=== PATIENT | male | born 1960 | race Caucasian/White ===

== ENCOUNTER 2020-02-13 08:24 | Outpatient (CLI) | payer OTHER, SELFPAY ==
--- NOTE | 2020-02-13 08:40 | CT_ITS ---
WS: [id number] CT ABDOMEN AND PELVIS WITH CONTRAST HISTORY: R INGUINAL CANAL MASS, RLQ DISTENTION TECHNIQUE: Imaging performed of the abdomen and pelvis with IV contrast. Single phase imaging of the abdomen. Coronal and sagittal reformats are submitted. All CT scans at [facility] use at least one of these dose optimization techniques: automated exposure control; mA and/or kV adjustment per patient size (includes targeted exams where dose is matched to clinical indication); or iterativ e reconstruction. IV CONTRAST: Omnipaque 300; 95 mL IV. Oral contrast: Yes. DLP: 1096.91 mGycm COMPARISON: None available. Lower thorax: Lung bases are clear. Heart is normal size. Small hiatal hernia. Liver/biliary system: Normal size with no intrahepatic dilatation. Gallbladder: Normal. No gallstones or wall thickening. No pericholecystic fluid. Pancreas: Normal. Spleen: Normal. Adrenal glands: Normal. Right kidney: Normal. Left kidney: Small cortical cyst measures 6 mm in the upper pole and also at the lower pole. No obstr uction. Aorta: Mild atherosclerosis with no aneurysm. Lymphadenopathy: None. Free fluid: None. GI tract: Normal appendix. There is mild diffuse colonic wall thickening. The most significant mucosa l thickening is in the descending and sigmoid colon. There are a few scattered diverticula. No free f luid. Abdominal wall: Unremarkable abdominal wall. No hernia. Pelvis: Mildly enlarged prostate gland encroaching into the urinary bladder. Prostate measures 5.6 x 4.3 x 4.4 cm. There is very mild diffuse bladder wall thickening. No free fluid. There is an 11 mm ly mph node at the RIGHT groin. Bones: Unremarkable. CT/CT abdomen pelvis w con* [id number] IMPRESSION: 1. Mild diffuse colitis. Most significant wall thickening involves the descend ing and sigmoid colon. 2. No ascites or free fluid. 3. Normal appendix. 4. Moderate atherosclerosis aorta with no aneurysm. 5. Small hiatal hernia. 6. Mild prostate gland enlargement.
[2020-02-13] MEDS: iohexol 300 mg/mL 50 mL Btl PO (09:47)
[2020-02-13] MEDS: iohexol 300 mg/mL 100 mL Btl IV (10:07)
== END 2020-02-13 08:25 | disposition home or self-care (01) ==
LOC: RADWPI 08:31
PROVIDERS: Family Provider Internal Medicine; PCP Internal Medicine; Visit Provider Surgery
DX: R19.09 Other intra-abdominal and pelvic swelling, mass and lump (principal); K52.89 Other specified noninfective gastroenteritis and colitis; I70.0 Atherosclerosis of aorta; K44.9 Diaphragmatic hernia without obstruction or gangrene; N40.0 Benign prostatic hyperplasia without lower urinary tract symptoms
CPT/HCPCS: 74177; Q9967

== ENCOUNTER 2020-04-20 07:19 | Emergency (ER) | payer OTHER, SELFPAY ==
[2020-04-20 07:33] VITALS: BP 114/91; PULSE 109; RESP 16; TEMP 36.6; O2SAT 98; BMI 21.8
--- NOTE | 2020-04-20 07:54 | CT_ITS ---
WS: [id number] CT ABDOMEN PELVIS TECHNIQUE: Contrast-enhanced CT of the abdomen and pelvis with coronal and sagittal reformatted image s. CLINICAL INFORMATION: abd pain COMPARISON: February 13, 2020 DLP: 380.[address] scans at [facility] use at least one of these dose optimization techniques: automat ed exposure control; mA and/or kV adjustment per patient size (includes targeted exams where dose is matched to clinical indication); or iterative reconstruction. FINDINGS: Mild diffuse fatty infiltration the liver. Normal portal vein and splenic vein. Lung bases are well a erated. Normal gallbladder. Fatty atrophy of the pancreas. Normal spleen. Small esophageal hiatal her juma. Normal caliber abdominal aorta. Moderate atheromatous disease abdominal aorta with aortic calcif ication. Adrenal glands are normal. Normal renal parenchymal enhancement. Small left renal cyst. Prev iously described colitis involving the left descending colon and sigmoid colon appears improved rehana red to previous with mild residual thickening. Remaining colon is normal. Normal appendix in the right lower quadrant. No free fluid in the pelvis. Prostate enlargement measu ring 4.9 CM. No periaortic or retroperitoneal lymphadenopathy. No inguinal lymphadenopathy. No pelvic lymphadenopathy. Normal lumbar spine. CT/CT abdomen pelvis w con* [id number] IMPRESSION: 1. Normal appendix in the right lower quadrant. 2. Improved colitis involving the left descending colon and sigmoid colon prev iously described February 13, 2020 3. Mild diffuse fatty infiltration liver. 4. Prostate enlargement measuring 5.1 CM. 5. No new abdominal or pelvic findings.
--- NOTE | 2020-04-20 07:54 | XRR_ITS ---
PROCEDURE INFORMATION: Exam: XR Chest, 1 View Exam date and time: 04/20/2020 8:04 AM Age: 60 years old Clinical indication: Cough and dyspnea; Patient HX: Dyspnea, cough; Additional info: Dyspnea/cough TECHNIQUE: Imaging protocol: XR of the chest Views: 1 view. COMPARISON: CR XR chest 2V* [id number] 12/16/2019 1:41 PM FINDINGS: Lungs: Unremarkable. No consolidation. Pleural space: Unremarkable. No pleural effusion. No pneumothorax. Heart/Mediastinum: Unremarkable. No cardiomegaly. Bones/joints: Unremarkable. XR/XR chest 1V portable [id number] IMPRESSION: No acute findings.
--- NOTE | 2020-04-20 07:55 | ED_ITS ---
HPI - Abdominal Pain General: Chief Complaint: Abdominal Pain Stated Complaint: Pain in abdomen and back. Sent from Dr Max Time Seen by Provider: 04/20/20 07:40 History of Present Illness: HPI narrative: 60-year-old male comes in complaining of vague abdominal pain. Is been going on for about 2 to 3 months. Patient has seen Dr. Max for it several times. He states he initially had a lump in his groin the doctor told him was a lymph node but he has not had any further lymph nodes in the groin area the original wound has decreased in size. Nothing is really changed in particular it he just came to the emergency room to get a second opinion today. 2 months ago he had a CT of his abdomen and pelvis which showed some mild diffuse colitis. Patient tells me he was treated for this with antibiotics but he is not sure of the name of the biotics. He was treated for this early on in the course of things. He does say Dr. Max to talk to about referring him to gastroenterology. He denies any vomiting or diarrhea has had a little bit of intermittent nausea at times. No GI bleed symptoms hematochezia melena hematemesis chronic coffee-ground emesis denies dysuria urgency or frequency. He denies any chest pain or shortness of breath accompanying this. MD elicited complaint: abdominal pain Pertinent past history: other (Mild diffuse colitis on CT 2 months ago) Onset (ago): month(s) (3) Pain Consistency: intermittent Location: Epigastric Quality: cramping Radiation: bilateral flank and back Exacerbating factors: nothing Relieving factors: nothing Associated Symptoms: Reports GI cramping and vomiting; Denies anorexia, belching, bloating, change in bowel habits, change in stool character, chills, coffee ground emesis, constipation, diarrhea, dyspepsia, dysuria, excessive flatus, fever(s), heartburn, hematochezia, hematuria, hematemesis, fecal incontinence, loose stools, melena, nausea, poor appetite and syncope Review of Systems Const: Denies: fever(s) or chills ENMT: Denies: throat pain, ear or mastoid pain, nasal discharge or nasal congestion Card: Denies: syncope Resp: Denies: dyspnea, productive cough or non-productive cough GI: Reports: vomiting and GI cramping; Denies: nausea, hematemesis, coffee ground emesis, heartburn, diarrhea, constipation, bloating, belching, excessive flatus, fecal incontinence, change in bowel habits, change in stool character, hematochezia or melena : Denies: dysuria or hematuria PFSH ED PFSH: Medical History Hyperlipidemia Hypertension Physical Exam Const: COMMON NORMALS: no acute distress GENERAL APPEARANCE: cooperative and comfortable ORIENTATION/CONSCIOUSNESS: Yes awake, Yes oriented to person, Yes oriented to place and Yes oriented to time HENMT: COMMON NORMALS: normocephalic, atraumatic and hearing grossly normal bilaterally HEAD & SCALP: normocephalic and atraumatic Neck/C-Spine: COMMON NORMALS: no JVD Resp: COMMON NORMALS: normal respiratory effort, No retractions, No use of accessory muscles and clear to auscultation bilaterally AUSCULTATION: clear to auscultation bilaterally Cardio: COMMON NORMALS: no JVD, regular rate, regular rhythm and No murmurs present (Cardio) RATE: regular rate RHYTHM: regular rhythm GI: COMMON NORMALS: Soft to palpation and No hepatosplenomegaly present AUSCULTATION: Yes normoactive bowel sounds PALPATION: Yes Soft to palpation, No Tenderness to palpation present (GI), No Guarding due to palpation present (GI) and Yes No hepatosplenomegaly present Extremity: COMMON NORMALS: normal to inspection, capillary refill normal, no clubbing, cyanosis or edema, no calf tenderness and no pedal edema Neuro: SENSORIUM/ORIENTATION: Yes oriented to person, Yes oriented to place and Yes oriented to time Skin: COMMON NORMALS: no rashes or lesions noted GENERAL SKIN EXAM: no rashes or lesions noted Course Vital Signs: Vital signs: Vital Signs Temperature 97.9 F 04/20/20 07:33 Pulse Rate 70 04/20/20 10:22 Respiratory Rate 16 04/20/20 10:22 Blood Pressure 122/78 04/20/20 10:22 Pulse Oximetry 97 04/20/20 10:22 MDM - Abdominal Pain MDM Narrative: Medical decision making narrative: CT is unremarkable. There were some colitis changes in the previous CT that are more resolved now. Did show a rather large prostate. We will start him on some tamsulosin although I do not think that is the source of his problems. He does not seem to have anything acute going on is simply more of ongoing chronic problems after the last several months encouraged him to continue to follow-up with Dr. Max I think going to see GI would be the next most logical step and he will probably need panendoscopy. If he has any worsening or change symptoms return at this point I would not recommend any antibiotics or any other interventions pending a change in symptoms or completion of the GI work-up. Lab Data: Labs: Lab Results 04/20/20 04/20/20 04/20/20 Range/Units 07:40 07:40 07:45 WBC 9.9 (4.0-10.0) 10^3/ uL RBC 5.77 H (4.1-5.3) 10^6/u L Hgb 17.6 H (11.7-16.6) g/dL Hct 52.0 (42.0-52.0) % MCV 90.1 (80-94) fL MCH 30.5 (28.0-34.0) pg MCHC 33.8 (30.0-36.0) g/dL RDW 12.3 (12.1-15.1) % Plt Count 301 (130-400) 10^3/c mm MPV 10.2 (7.4-10.4) fL Neut % (Auto) 62.7 % Lymph % (Auto) 28.1 % [place] % (Auto) 7.2 % Eos % (Auto) 1.2 % Baso % (Auto) 0.6 % Neut # (Auto) 6.22 (1.8-7.7) 10^3/u L Lymph # (Auto) 2.8 (0.8-4.8) 10^3/u L [place] # (Auto) 0.7 (0.2-0.9) 10^3/u L Eos # (Auto) 0.1 (0.0-0.8) 10^3/u L Baso # (Auto) 0.1 (0.0-0.1) 10^3/u L Nucleated RBC % (a uto) 0 % Nucleated RBCs # 0.0 /100WBC Sodium 135 L (136-145) mmol/L Potassium 4.2 (3.5-5.1) mmol/L Chloride 97 L (98-107) mmol/L Carbon Dioxide 25 (22-29) mmol/L Anion Gap 17.2 (5-19) BUN 17 (6-20) mg/dL Creatinine 1.0 (0.7-1.2) mg/dL GFR Calculation 76.5 L (90-130) mL/min Glucose 387 H (65-115) mg/dL Calculated Osmolal ity 298 H (285-295) mOsm/k g Calcium 9.7 (8.5-10.5) mg/dL Total Bilirubin 0.6 (0.15-1.2) mg/dL AST 12 (0-40) U/L ALT 19 (0-41) U/L Alkaline Phosphata se 95 (40-130) IU/L C-Reactive Protein 1.0 (0.0-4.9) mg/L Total Protein 7.5 (6.6-8.7) g/dL Albumin 4.4 (3.5-5.2) g/dL Globulin 3.1 (1.3-4.6) g/dL Urine Color Yellow (Yellow) Urine Appearance Clear (CLEAR) Urine pH 5 (5-7) Ur Specific Gravit y 1.020 (1.005-1.030) Urine Protein Neg (Negative) Urine Glucose (UA) 4+ H (Normal) Urine Ketones 1+ H (Negative) Urine Blood Neg (Negative) Urine Nitrate Negative (Negative) Urine Bilirubin Neg (Negative) Urine Urobilinogen Norm (Negative) mg/dL Ur Leukocyte Michelle ase Negative (Negative) Discharge Plan Discharge Patient Disposition: Home Clinical Impression: Abdominal pain, chronic, generalized, Hypertension, Benign prostatic hyperplasia Condition: Stable Prescriptions: New tamsulosin 0.4 mg capsule 0.4 mg PO DAILY Qty: 30 RF: 0 No Action atorvastatin 20 mg tablet 20 mg PO DAILY@0630 RF: 0 losartan 25 mg tablet 25 mg PO DAILY@0630 RF: 0 Lantus Solostar U-100 Insulin 100 unit/mL (3 mL) insulin pen 20 unit SUBCUT BEDTIME@1999 RF: 0 Discharge Orders: Discharge ED (Routine); Ordered 04/20/20 Ordered By: Darshan Tavares Referrals: Ming Max DO [Primary Care Provider] - Discharge Diet: Usual diet Discharge Activity: Increase activity as tolerated Patient Instructions: Abdominal Pain (ED) Activity Restrictions/Additional Instructions: Follow-up with GI as scheduled by Dr. Max. Return to the emergency room if symptoms worsen. Coding Level of Care Code ED Operator Vacuum for Prudence Fwd Exam Comprehensive
[2020-04-20 08:21] LABS: Add Urine Microscopic? NO
[2020-04-20] MEDS: iohexol 300 mg/mL 100 mL Btl IV (08:25)
[2020-04-20 08:26] LABS: Basophils # 0.1 10^3/uL (0.0-0.1); Basophils % 0.6 %; Eosinophils # 0.1 10^3/uL (0.0-0.8); Eosinophils % 1.2 %; Hemoglobin 17.6 g/dL (11.7-16.6); Lymphocytes # 2.8 10^3/uL (0.8-4.8); Lymphocytes % 28.1 %; Mean Corpuscular HGB Conc 33.8 g/dL (30.0-36.0); Mean Corpuscular Hemoglobin 30.5 pg (28.0-34.0); Mean Corpuscular Volume 90.1 fL (80-94); Mean Platelet Volume 10.2 fL (7.4-10.4); Monocytes # 0.7 10^3/uL (0.2-0.9); Monocytes % 7.2 %; Neutrophils # 6.22 10^3/uL (1.8-7.7); Neutrophils % 62.7 %; Nucleated Red Blood Cells % 0 %; Platelet Count 301 10^3/cmm (130-400); Red Blood Count 5.77 10^6/uL (4.1-5.3); Red Cell Distribution Width 12.3 % (12.1-15.1); White Blood Count 9.9 10^3/uL (4.0-10.0)
[2020-04-20 08:31] LABS: Alanine Aminotransferase 19 U/L (0-41); Albumin Level 4.4 g/dL (3.5-5.2); Alkaline Phosphatase 95 IU/L (40-130); Anion Gap 17.2 (5-19); Aspartate Amino Transferase 12 U/L (0-40); Blood Urea Nitrogen 17 mg/dL (6-20); Calcium 9.7 mg/dL (8.5-10.5); Carbon Dioxide 25 mmol/L (22-29); Chloride 97 mmol/L (98-107); Globulin 3.1 g/dL (1.3-4.6); Glomerular Filtration Rate 76.5 mL/min (90-130); Glucose 387 mg/dL (65-115); Osmolality Calculated 298 mOsm/kg (285-295); Potassium 4.2 mmol/L (3.5-5.1); Sodium 135 mmol/L (136-145); Total Bilirubin 0.6 mg/dL (0.15-1.2); Total Protein 7.5 g/dL (6.6-8.7)
[2020-04-20 09:03] VITALS: BP 119/76; BP 120/81; BP 96/75; PULSE 111; PULSE 94; PULSE 95
[2020-04-20 09:04] VITALS: PULSE 111
[2020-04-20 09:41] LABS: Protein Urine Neg (Negative); Urine Appearance Clear (CLEAR); Urine Color Yellow (Yellow); pH Urine 5 (5-7)
[2020-04-20 09:42] LABS: Bilirubin Urine Neg (Negative); Blood Urine Neg (Negative); Glucose Urine UA 4+ (Normal); Ketones Urine 1+ (Negative); Leukocyte Esterase Urine Negative (Negative); Nitrate Urine Negative (Negative); Urobilinogen Urine Norm (Negative)
[2020-04-20 10:22] VITALS: BP 122/78; PULSE 70; RESP 16; O2SAT 97
== END 2020-04-20 10:22 | disposition home or self-care (01) ==
PROVIDERS: Emergency Provider Family Medicine; PCP Internal Medicine
DX: G89.29 Other chronic pain (principal); R10.84 Generalized abdominal pain; I10 Essential (primary) hypertension; N40.0 Benign prostatic hyperplasia without lower urinary tract symptoms; Z79.4 Long term (current) use of insulin; E78.5 Hyperlipidemia, unspecified
CPT/HCPCS: 12345; 71045; 74177; 80053; 81003; 85025; 86140; 99283; Q9967

== ENCOUNTER 2024-09-06 10:42 | Inpatient (IN) | payer SELFPAY ==
[2024-09-06] VITALS (12 sets, daily range): BP systolic 67–159; BP diastolic 48–79; PULSE 85–111; RESP 16–25; TEMP 36.4; O2SAT 95–100; BMI 22.6; BMI 24.0
--- NOTE | 2024-09-06 10:47 | ED_ITS ---
HPI - General Adult General: Stated complaint: pain with urination Time Seen by Provider: 09/06/24 10:43 History of Present Illness: Associated symptoms: Deny chest pain, dyspnea or rash Related Data Home Medications ?Medication ?Instructions ?Recorded ?Confirmed atorvastatin 20 mg tablet 20 mg PO DAILY@0604/20/20 04/20/20 insulin glargine 100 unit/mL (3 20 unit SUBCUT BEDTIME @199904/20/20 04/20/20 mL) subcutaneous pen (Lantus Solostar U-100 Insulin) losartan 25 mg tablet 25 mg PO DAILY@62904/20/20 04/20/20 Previous Rx's ?Medication ?Instructions ?Recorded tamsulosin 0.4 mg capsule 0.4 mg PO DAILY #30 caps Allergies Allergy/AdvReac Type Severity Reaction Status Date / Time No Known Allergies Allergy Verified 04/20/20 07:38 Review of Systems Const: Denies: fever(s) or chills Card: Denies: chest pain Resp: Denies: dyspnea GI: Denies: abdominal pain : Reports: dysuria; Denies: urinary frequency or urinary urgency Musc: Denies: neck pain or back pain Skin/Breast: Denies: rash PFSH ED PFSH: Medical History Hyperlipidemia Hypertension Physical Exam Const: COMMON NORMALS: no acute distress GENERAL APPEARANCE: cooperative and comfortable ORIENTATION/CONSCIOUSNESS: Yes awake, Yes oriented to person, Yes oriented to place and Yes oriented to time HENMT: COMMON NORMALS: normocephalic, atraumatic and hearing grossly normal bilaterally HEAD & SCALP: normocephalic and atraumatic Resp: COMMON NORMALS: normal respiratory effort, No retractions, No use of accessory muscles and clear to auscultation bilaterally AUSCULTATION: clear to auscultation bilaterally Cardio: COMMON NORMALS: regular rate, regular rhythm and No murmurs present (Cardio) RATE: regular rate RHYTHM: regular rhythm GI: COMMON NORMALS: Soft to palpation and No hepatosplenomegaly present AUSCULTATION: Yes normoactive bowel sounds PALPATION: Yes Soft to palpation, No Tenderness to palpation present (GI), No Guarding due to palpation present (GI) and Yes No hepatosplenomegaly present Extremity: COMMON NORMALS: normal to inspection, capillary refill normal, no clubbing, cyanosis or edema, no calf tenderness and no pedal edema Neuro: SENSORIUM/ORIENTATION: Yes oriented to person, Yes oriented to place and Yes oriented to time Skin: COMMON NORMALS: no rashes or lesions noted GENERAL SKIN EXAM: no rashes or lesions noted Discharge Plan Discharge Condition: Stable Prescriptions: No Action atorvastatin 20 mg tablet 20 mg PO DAILY@0630 losartan 25 mg tablet 25 mg PO DAILY@0630 Lantus Solostar U-100 Insulin 100 unit/mL (3 mL) insulin pen 20 unit SUBCUT BEDTIME@1999 tamsulosin 0.4 mg capsule 0.4 mg PO DAILY Qty: 30 0RF Referrals: Ming Max DO [Primary Care Provider, Internal Medicine] Print Language: Bruneian Coding Level of Care Code ED System Engineer for Prudence Verduzco
--- NOTE | 2024-09-06 11:22 | W.ED.MALEGU ---
HPI - Male Genitourinary General: Chief complaint: Urogenital-Male Stated complaint: pain with urination Time Seen by Provider: 09/06/24 10:43 History of Present Illness: to the emergency department with a chief complaint of vomiting and severe pain for the past couple of days. The patient has a history of diabetes and a previous urinary tract infection (UTI) a couple of years ago. The patient reports feeling feverish, with chills and hot flashes, although they have not measured their temperature at home. They describe feeling weak and generally unwell. The patient denies any chest pain, shortness of breath, muscle pain, or joint pain. They mention having blood in their urine during their previous UTI episode, which was treated with antibiotics. The current symptoms are impacting the patient's overall well-being, causing them to feel poor in general. The patient's last UTI occurred a couple of years ago when they noticed blood in their urine while at work. They came to the hospital and were prescribed antibiotics for treatment. No specific information was provided about the resolution of that previous infection or any recurrences since then. Related Data Home Medications ?Medication ?Instructions ?Recorded ?Confirmed atorvastatin 20 mg tablet 20 mg PO DAILY@0630 04/20/20 09/06/24 insulin glargine 100 unit/mL (3 30 unit SUBCUT BEDTIME@199904/20/20 09/06/24 mL) subcutaneous pen (Lantus Solostar U-100 Insulin) losartan 25 mg tablet 25 mg PO DAILY@0630 04/20/20 09/06/24 metformin 500 mg tablet,extended 500 mg PO DAILY 09/06/24 09/06/24 release 24 hr Allergies Allergy/AdvReac Type Severity Reaction Status Date / Time No Known Allergies Allergy Verified 04/20/20 07:38 Review of Systems General: Reports: 10 or more systems reviewed and unremarkable except in HPI and below PFSH ED PFSH: Medical History Hyperlipidemia Hypertension Physical Exam Const: COMMON NORMALS: no acute distress, patient oriented x3, healthy appearing, alert and well nourished HENMT: COMMON NORMALS: normocephalic HEAD & SCALP: normocephalic Eye: COMMON NORMALS: EOMs intact bilaterally Neck/C-Spine: COMMON NORMALS: full ROM and supple Resp: COMMON NORMALS: normal respiratory effort, No retractions and clear to auscultation bilaterally AUSCULTATION: clear to auscultation bilaterally Cardio: COMMON NORMALS: regular rate, regular rhythm, No gallops present (Cardio) and No murmurs present (Cardio) RATE: regular rate RHYTHM: regular rhythm GI: COMMON NORMALS: Soft to palpation and non-tender PALPATION: Yes Soft to palpation OTHER: No CVA Tenderness Extremity: GENERAL: Yes normal exam except as noted Neuro: COMMON NORMALS: patient oriented x3 SENSORIUM/ORIENTATION: Yes alert Skin: COMMON NORMALS: no rashes or lesions noted GENERAL SKIN EXAM: no rashes or lesions noted Course Vital Signs: Vital signs: Vital Signs Temperature 97.6 F 09/06/24 10:51 Pulse Rate 90 09/06/24 12:00 Respiratory Rate 16 09/06/24 12:00 Blood Pressure 122/63 09/06/24 12:00 Pulse Oximetry 98 09/06/24 12:00 Oxygen Delivery Me thod Room Air 09/06/24 10:51 MDM - Male Medical Decision Making 64-year-old male presented to the emergency department for evaluation of dysuria. He was found to be hypotensive upon arrival in the emergency department. Repeat blood pressure still demonstrated hypotension. Patient did have a general sense of malaise. Laboratory evaluation is consistent with a urinary tract infection. Patient concerning for sepsis. Patient started on Levaquin, given fluid bolus, and blood cultures were ordered. Discussed with the patient my recommendation for admission and he was amiable to this plan. Dr. Crouch the hospitalist was contacted. Due to the elevated creatinine he was wanting to rule out obstruction with a CT abdomen pelvis. CT now pelvis did not show a ureteral obstruction. Patient was admitted to [facility] Lab Data 09/06/24 11:23 09/06/24 11:23 Radiology Impressions Abdomen/Pelvis CT 09/06/24 13:10 IMPRESSION: 1. New, mild bilateral perinephric stranding. No renal or ureteral obstruction. Slightly greater inflammation surrounding the LEFT kidney and ureter. Correlate for possible urinary tract infection. 2. Descending colon diverticulosis. No evidence for acute diverticulitis. 3. Negative appendix. 4. No obstruction of the GI tract. Laboratory Results WBC 18.73 10^3/uL (3.29-11.43) H 09/06/24 11:23 RBC 5.17 10^6/uL (3.85-5.65) 09/06/24 11:23 Hgb 15.40 g/dL (11.27-16.99) 09/06/24 11:23 Hct 46.0 % (37-53) 09/06/24 11:23 MCV 89.0 fl (82-101) 09/06/24 11:23 MCH 29.8 pg (27-33) 09/06/24 11:23 MCHC 33.5 g/dL (30-55) 09/06/24 11:23 RDW 12.3 % (12.1-15.1) 09/06/24 11:23 Plt Count 232 10^3/cmm (157-399) 09/06/24 11:23 MPV 10.3 fL (7.4-10.4) 09/06/24 11:23 Neut % (Auto) 86.1 % 09/06/24 11:23 Lymph % (Auto) 4.0 % 09/06/24 11:23 [place] % (Auto) 9.0 % 09/06/24 11:23 Eos % (Auto) 0.1 % 09/06/24 11:23 Baso % (Auto) 0.2 % 09/06/24 11:23 Neut # (Auto) 16.14 10^3/uL (1.8-7.7) H 09/06/24 11:23 Lymph # (Auto) 0.8 10^3/uL (0.8-4.8) 09/06/24 11:23 [place] # (Auto) 1.7 10^3/uL (0.2-0.9) H 09/06/24 11:23 Eos # (Auto) 0.0 10^3/uL (0.0-0.8) 09/06/24 11:23 Baso # (Auto) 0.0 10^3/uL (0.0-0.1) 09/06/24 11:23 Nucleated RBC % (auto) 0 % 09/06/24 11:23 Nucleated RBCs # 0.0 /100WBC 09/06/24 11:23 Sodium 134 mmol/L (136-145) L 09/06/24 11:23 Potassium 4.4 mmol/L (3.5-5.1) 09/06/24 11:23 Chloride 96 mmol/L (98-107) L 09/06/24 11:23 Carbon Dioxide 21 mmol/L (22-29) L 09/06/24 11:23 Anion Gap 21.4 (5-19) H 09/06/24 11:23 BUN 30 mg/dL (8-23) H 09/06/24 11:23 Creatinine 1.5 mg/dL (0.7-1.2) H 09/06/24 11:23 GFR Calculation 47.3 mL/min (90-130) L 09/06/24 11:23 Glucose 277 mg/dL (65-115) H 09/06/24 11:23 Calculated Osmolality 294 mOsm/kg (285-295) 09/06/24 11:23 Lactic Acid 1.9 mmol/L (0.5-2.2) 09/06/24 11:23 Calcium 9.3 mg/dL (8.5-10.5) 09/06/24 11:23 Total Bilirubin 0.9 mg/dL (0.15-1.2) 09/06/24 11:23 AST 17 U/L (0-40) 09/06/24 11:23 ALT 16 U/L (0-41) 09/06/24 11:23 Alkaline Phosphatase 97 U/L (40-130) 09/06/24 11:23 Total Protein 7.7 g/dL (6.6-8.7) 09/06/24 11:23 Albumin 3.9 g/dL (3.5-5.2) 09/06/24 11:23 Globulin 3.8 g/dL (1.3-4.6) 09/06/24 11:23 Urine Color Dark yellow (Yellow) A 09/06/24 11:47 Urine Appearance Cloudy (CLEAR) A 09/06/24 11:47 Urine pH 5.5 (5-7) 09/06/24 11:47 Ur Specific [place] 1.024 (1.005-1.030) 09/06/24 11:47 Urine Protein 2+ (Negative) A 09/06/24 11:47 Urine Glucose (UA) 3+ (Normal) H 09/06/24 11:47 Urine Ketones Trace (Negative) 09/06/24 11:47 Urine Blood 3+ (Negative) A 09/06/24 11:47 Urine Nitrate Positive (Negative) A 09/06/24 11:47 Urine Bilirubin Negative (Negative) 09/06/24 11:47 Urine Urobilinogen 1.0 mg/dL (Negative) 09/06/24 11:47 Ur Leukocyte Esterase 2+ (Negative) A 09/06/24 11:47 Urine RBC 0-2 /hpf (0-2) 09/06/24 11:47 Urine WBC >100 /hpf (0-5) H 09/06/24 11:47 Ur Squamous Epith Cells 0-5 /hpf (0-5) 09/06/24 11:47 Amorphous Sediment Not Reportable 09/06/24 11:47 Urine Bacteria 4+ /hpf (NONE) H 09/06/24 11:47 Hyaline Casts 7.85 /lpf 09/06/24 11:47 All radiology interpretation(s) finalized by discharge ED provider radiology interpretation(s): CT abdomen pelvis showed pyelonephritis without ureteral obstruction Discharge Plan Discharge Patient Disposition: Admitted As Inpatient Clinical Impression: Acute pyelonephritis due to bacteria Sepsis Qualifiers: Sepsis type: sepsis due to unspecified organism Sepsis acute organ dysfunction status: with acute organ dysfunction Severe sepsis acute organ dysfunction type: acute renal failure Acute renal failure type: unspecified Severe sepsis shock status: without septic shock Qualified Code(s): A41.9 - Sepsis, unspecified organism Urinary tract infection Qualifiers: Urinary tract infection type: acute cystitis Hematuria presence: without hematuria Qualified Code(s): N30.00 - Acute cystitis without hematuria Condition: Stable Coding Level of Care Code ED Cardiovascular Sonographer for Prudence Verduzco
[2024-09-06 11:30] LABS: Basophils % 0.2 %; Eosinophils % 0.1 %; Lymphocytes # 0.8 10^3/uL (0.8-4.8); Mean Corpuscular HGB Conc 33.5 g/dL (30-55); Mean Corpuscular Hemoglobin 29.8 pg (27-33); Mean Platelet Volume 10.3 fL (7.4-10.4); Monocytes # 1.7 10^3/uL (0.2-0.9); Neutrophils # 16.14 10^3/uL (1.8-7.7); Neutrophils % 86.1 %; Nucleated Red Blood Cells % 0 %; Platelet Count 232 10^3/cmm (157-399); Red Blood Count 5.17 10^6/uL (3.85-5.65); Red Cell Distribution Width 12.3 % (12.1-15.1); White Blood Count 18.73 10^3/uL (3.29-11.43)
[2024-09-06] MEDS: sodium chloride 0.9% 1,000 ML 999 ML IV (11:39)
[2024-09-06] MEDS: cefTRIAXone 1,000 mg SDV 1000 MG IM (11:41)
[2024-09-06 11:51] LABS: Alanine Aminotransferase 16 U/L (0-41); Albumin Level 3.9 g/dL (3.5-5.2); Alkaline Phosphatase 97 U/L (40-130); Anion Gap 21.4 (5-19); Aspartate Amino Transferase 17 U/L (0-40); Blood Urea Nitrogen 30 mg/dL (8-23); Calcium 9.3 mg/dL (8.5-10.5); Carbon Dioxide 21 mmol/L (22-29); Chloride 96 mmol/L (98-107); Creatinine Clr Calc Pharmacy 54.7983; Globulin 3.8 g/dL (1.3-4.6); Glomerular Filtration Rate 47.3 mL/min (90-130); Glucose 277 mg/dL (65-115); Osmolality Calculated 294 mOsm/kg (285-295); Potassium 4.4 mmol/L (3.5-5.1); Sodium 134 mmol/L (136-145); Total Bilirubin 0.9 mg/dL (0.15-1.2); Total Protein 7.7 g/dL (6.6-8.7)
[2024-09-06 11:55] LABS: Bilirubin Urine Negative (Negative); Blood Urine 3+ (Negative); Glucose Urine UA 3+ (Normal); Ketones Urine Trace (Negative); Leukocyte Esterase Urine 2+ (Negative); Nitrate Urine Positive (Negative); Protein Urine 2+ (Negative); Specific Gravity, Urine 1.024 (1.005-1.030); Urine Appearance Cloudy (CLEAR); Urine Color Dark Yellow (Yellow); pH Urine 5.5 (5-7)
[2024-09-06 11:56] LABS: Lactic Sepsis W/Reflex 1.9 mmol/L (0.5-2.2)
[2024-09-06 11:58] LABS: Add Urine Microscopic? YES; Bacteria Urine 4+ /hpf; Hyaline Casts Urine 7.85 /lpf; RBC Urine 0-2 /hpf (0-2); Squamous Epithelial Cell Urine 0-5 /hpf (0-5); WBC Urine >100 /hpf (0-5)
[2024-09-06 12:29] LABS: Add Urine Culture? Yes; UA Slide Review UA Slide Review Perf
--- NOTE | 2024-09-06 13:02 | ECG_ITS ---
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 Measurements Intervals [place] Rate: 82 P: 75 SD: 148 QRS: 32 QRSD: 80 T: 78 QT: 360 QTc: 422 Interpretive Statements SINUS RHYTHM No previous ECG available for comparison Electronically Signed On 09-07-2024 13:06:36 CDT by Dashawn Avery M.D. [email or web address]
[2024-09-06] MEDS: levofloxacin-dextrose 5 % 750 MG/150 ML PREMIX 100 MG IV (13:09)
--- NOTE | 2024-09-06 13:10 | CT_ITS ---
WS: [id number] CT ABDOMEN AND PELVIS NONCONTRAST HISTORY: UTI with elevated Cr r/o obstruction TECHNIQUE: Imaging performed through the abdomen and pelvis. Coronal and sagittal reformats are submitted. All CT scans at [facility] use at least one of these dose optimization techniques: automated exposure control; mA and/or kV adjustment per patient size (includes targeted exams where dose is matched to clinical indication); or iterative reconstruction. DLP: 520.17 mGy.cm COMPARISON: 04/20/2020 Lower thorax: 2 mm nodule LEFT lung base noted on the prior study from 2019. Heart size is normal. Small hiatal hernia. Liver: Normal size liver. No mass or bile duct dilatation. Gallbladder: Normal gallbladder. No pericholecystic fluid or cholelithiasis. No gallbladder wall thickening. Pancreas: Mild atrophy. Spleen: Normal. Adrenal glands: Normal. No mass. Right kidney: Mild perinephric stranding. No obstruction. Perinephric stranding is new since 04/20/2020. Mild edema in the pararenal fascia. Left kidney: Normal size kidney with perinephric soft tissue stranding which is new. Hyperdense mass in the lower pole cortex measures 6 mm and is stable. Mild LEFT periureteral stranding. Aorta: Mild atherosclerosis abdominal aorta with no aneurysm. No free fluid, intraperitoneal air or significant lymphadenopathy. GI tract: No obstruction. No appendicitis. Mild diverticular disease in the descending and sigmoid colon. Abdominal wall: Negative. No hernia. Pelvis: Prostate gland is enlarged. Mildly distended urinary bladder. Small lymph node or fluid in the RIGHT inguinal canal. Osseous structures: Unremarkable. CT/CT abdomen pelvis wo con [id number] IMPRESSION: 1. New, mild bilateral perinephric stranding. No renal or ureteral obstruction . Slightly greater inflammation surrounding the LEFT kidney and ureter. Correla te for possible urinary tract infection. 2. Descending colon diverticulosis. No evidence for acute diverticulitis. 3. Negative appendix. 4. No obstruction of the GI tract.
--- NOTE | 2024-09-06 15:22 | P.HP_ITS ---
Providers/Chief Complaint 2 Primary Care Provider: Ming Max DO Chief Complaint: pain with urination History of Present Illness Osei Mohr is a 64 year old male with past medical history of type 2 diabetes mellitus, hypertension presents to the ER difficulty and painful urination along with decreased urination for last 2 days. Patient denies any nausea vomiting, headache. Occasional back pain. Denies any trauma. Had a UTI once around 2 to 3 years ago. In the ER found to have systolic blood pressure 87 after which he was given septic bolus. Currently blood pressures are 120 systolics. Review of Systems 2 General: Reports: 10 or more systems reviewed and unremarkable except in HPI and below Const: Denies: fever(s), chills, body aches, change in appetite, change in weight, malaise, night sweats, diaphoresis, change in sleep pattern, daytime sleepiness or snoring Eyes: Denies: change in vision, blurry vision, photophobia, eye discomfort or eye discharge ENMT: Denies: throat pain, enlarged tonsils, hoarseness, mouth pain, oral sores, dry mouth, tinnitus, nasal congestion or post nasal drip Card: Denies: chest pain, palpitations, irregular heart rhythm, edema, swelling of feet/ankles, lightheadedness, syncope, pre-syncope, dyspnea on exertion, orthopnea, leg pain with exertion or acrocyanosis Resp: Denies: dyspnea, productive cough, non-productive cough, wheezing, stridor, pain on inspiration, change in phlegm color, hemoptysis or chest congestion GI: Denies: abdominal pain, nausea, vomiting, hematemesis, coffee ground emesis, dysphagia, heartburn, diarrhea, constipation, bloating, GI cramping, change in bowel habits, pain on defecation, hematochezia or melena : Denies: flank pain, difficulty urinating, dysuria, urinary frequency, urinary urgency, urinary hesitancy, urinary dribbling, difficulty starting urination, change in urine stream, nocturia or hematuria Musc: Denies: neck pain, back pain, extremity pain, joint pain, joint swelling, joint redness, joint stiffness or limited range of motion Neuro: Denies: headache(s), numbness in extremities, weakness in extremities, sensory changes, lack of coordination, difficulty walking, frequent falls, dizziness, vertigo, confusion, Slurred speech present, difficulty communicating thoughts or seizure-like activity Psych: Denies: anxiety, depression, mood swings, panic attacks, hopelessness or irritability Endo: Denies: polyuria, polydipsia, tired all the time, cold intolerance, excessive sweating, flushing or heat intolerance Dalton/Lymph: Denies: easy bruising or easy bleeding All/Imm: Denies: tongue swelling, facial swelling or acute wheezing Medications/Allergies Home Medications ?Medication ?Instructions ?Recorded ?Confirmed ?Last Taken ?Type atorvastatin 20 mg tablet 20 mg PO DAILY@62904/20/20 09/06/24 09/06/24 History insulin glargine 100 unit/mL (3 30 unit SUBCUT BEDTIME @199904/20/20 09/06/24 09/05/24 History mL) subcutaneous pen (Lantus Solostar U-100 Insulin) losartan 25 mg tablet 25 mg PO DAILY@62904/20/20 09/06/24 09/06/24 History metformin 500 mg tablet,extended 500 mg PO DAILY 09/0609/06/24 09/06/24 History release 24 hr Allergies Allergy/AdvReac Type Severity Reaction Status Date / Time No Known Allergies Allergy Verified 04/20/20 07:38 PFSH Acute 2 PFSH: Medical History (Updated 09/06/24 @ 15:26 by Trace Perez MD) Type 2 diabetes mellitus Hyperlipidemia Hypertension Vitals/I&O/Wt Last Vital Signs Temp 97.6 F 09/06/24 10:51 Pulse 90 09/06/24 12:00 Resp 16 09/06/24 12:00 BP 122/63 09/06/24 12:00 Pulse Ox 98 09/06/24 12:00 O2 Del Method Room Air 09/06/24 10:51 09/06/24 09/06/24 09/06/24 06:59 14:59 22:59 Intake Total 0 / 0 Balance 0 / 0 Weight last 48 hrs Weight 75.75 kg Physical Exam 2 Quick SOFA Score: Respiratory Rate: 16 Blood Pressure: 67/52 Juan A Coma Scale: 15 qSOFA Score: 1 If qSOFA score 2 or greater, continue: PaO2/FiO2 Ratio (mmHg): 420 Blood Pressure Mean: 57 Bilirubin (mg/dl): 0.9 Platelets (x10?/ml): 232 C reatinine (mg/dl): 1.5 SOFA Score: 2 Evaluation: Current stage of sepsis: severe sepsis Sepsis stage criteria used: [facility] Sep-1 and Sepsis-3 Crystalloid fluids: 30 mL/kg crystalloid fluids ordered and initiated within 3 hours Blood cultures ordered: Yes Possible source: genitourinary Focused Exam: Vital signs: Temp Pulse Resp BP Pulse Ox O2 Del Method 09/06/24 12:00 90 16 122/63 98 09/06/24 11:45 98 16 98 09/06/24 11:28 102 H 16 67/52 97 09/06/24 10:51 97.6 F 108 H 16 79/48 100 Room Air Capillary refill: > 3 Seconds Peripheral pulse strength: 1+ Faint P eripheral pulse location: Radial Skin exam: no rashes or lesions identified; abnormal turgor Date exam was performed: 09/06/24 Time exam was performed: 15:25 2 Sepsis Screen No Definite Risk Today, 12:00 Respiratory Rate, (12 - 18) 16 breaths/min Today, 12:00 Blood Pressure 122/63 mmHg Today, 12:00 [place] Coma Scale Score 15 Today, 10:51 Quick SOFA Score 0 Today, 12:00 SOFA Score: 2 Juan A Coma Scale Score 15 Today, 10:51 Blood Pressure Mean 82 mmHg Today, 12:00 Total Bilirubin, (0.15-1.2) 0.9 mg/dL Today, 11:23 Platelet Count, (157-399) 232 10^3/cmm Today, 11:23 Creatinine, (0.7-1.2) 1.5 mg/dL H Today, 11:23 Data 09/06/24 11:23 09/06/24 11:23 Micro: Microbiology 09/06/24 12:46 Blood Culture - Preliminary Blood SPECIMEN COLLECTED 09/06/24 12:45 Blood Culture - Preliminary Blood SPECIMEN COLLECTED A&P Assessment and plan (1) Sepsis: Severe sepsis. SIRS: Tachycardic, Febrile, Leukocytosis Source: Pyelonephritis End organ damage: Hypotension, acute kidney injury Lactic acid within normal limits Patient did receive fluid bolus up with 30 mL/kg body weight. Continue with NS at 100 cc/h. Check echocardiogram. Monitor blood pressures. Keep mean artery pressure 65 mmHg. Follow blood culture, urine culture, trend procalcitonin. (2) Acute pyelonephritis due to bacteria: Follow-up urine culture. IV ceftriaxone [address] abdomen pelvis negative for obstructive nephropathy. (3) Type 2 diabetes mellitus: Check A1c. Continue with home dose Lantus. Insulin sliding scale low-dose protocol. (4) Hypertension: Goal blood pressure less than 140/90 mmHg with mean over 65. Blood pressure severely low on presentation to the ER requiring fluid boluses. Hold off on antihypertensives. (5) Acute kidney injury: Most likely in setting of severe sepsis. Cannot rule out CKD in setting of diabetic nephropathy. No baseline labs. CT negative for obstructive nephropathy. Check urinalysis, urine lites, urine creatinine. Medical reconciliation done for nephrotoxic drugs. Hold off on home dose of losartan and metformin. Daily BMP checks. Monitor electrolytes. Plan Full code Carb consistent diet Famotidine for PUD prophylaxis. Lovenox for DVT prophylaxis PDMP PDMP Reviewed: Not Reviewed Attestations 2 Medical Necessity Statement*: Admission for more than 2 midnights for management of severe sepsis in setting of pyelonephritis, cystitis, acute kidney injury in a patient with history of type 2 diabetes mellitus Diagnoses Sepsis A41.9; R65.20; N17.9 Acute renal failure type: unspecified Sepsis acute organ dysfunction status: with acute organ dysfunction Sepsis type: sepsis due to unspecified organism Severe sepsis acute organ dysfunction type: acute renal failure Severe sepsis shock status: without septic shock Acute pyelonephritis due to bacteria N10; B96.89 Type 2 diabetes mellitus E11.9 Hypertension I10 Acute kidney injury N17.9
[2024-09-06] MEDS: sodium chloride 0.9% 1,000 ML 100 ML IV (15:41)
[2024-09-06 15:49] LABS: Lactic Sepsis W/Reflex 2.1 mmol/L (0.5-2.2)
[2024-09-06 16:16] LABS: Reflex Lactate Order REFLEX LACTIC ORDERD
[2024-09-06 18:19] LABS: Lactic Acid level (Lactate) 1.2 mmol/L (0.5-2.2)
--- NOTE | 2024-09-06 20:10 | PC.NURSE ---
This nurse educated patient that report was previously called and that the room was still being cleaned, and this patient stated to nurse, If you guys don't get me in a wheelchair and in my room in the next 10 minutes, I am going to have you unhook me from everything and I am walking out.
[2024-09-06 20:48] LABS: Glucose Point of Care 250 mg/dL (70-110)
[2024-09-06] MEDS: famotidine 20 mg Tablet PO (21:06)
[2024-09-06] MEDS: insulin lispro 100 unit/1 mL SUBCUT (21:06)
[2024-09-06] MEDS: enoxaparin 40 mg/0.4 mL Syringe SUBCUT (21:06)
[2024-09-06] MEDS: docusate sodium 100 mg Capsule PO (21:06)
[2024-09-06 22:21] LABS: Estmated Average Glucose 177; Hemoglobin A1C 7.8 % (4.0-6.0)
[2024-09-06] MEDS: phenazopyridine 100 mg Tablet 200 MG PO (23:49)
[2024-09-07] VITALS (10 sets, daily range): BP systolic 134–193; BP diastolic 67–111; PULSE 90–108; RESP 17–32; TEMP 36.6–37.4; O2SAT 94–96
[2024-09-07] MEDS: sodium chloride 0.9% 1,000 ML 100 ML IV (02:18)
[2024-09-07 03:59] LABS: Basophils % 0.2 %; Eosinophils % 0.1 %; Hematocrit 38.1 % (37-53); Lymphocytes % 5.9 %; Mean Corpuscular HGB Conc 33.1 g/dL (30-55); Mean Corpuscular Volume 90.7 fl (82-101); Monocytes # 1.6 10^3/uL (0.2-0.9); Monocytes % 9.9 %; Neutrophils # 13.33 10^3/uL (1.8-7.7); Neutrophils % 83.2 %; Nucleated Red Blood Cells % 0 %; Platelet Count 213 10^3/cmm (157-399); Red Cell Distribution Width 12.4 % (12.1-15.1); White Blood Count 16.03 10^3/uL (3.29-11.43)
[2024-09-07 04:19] LABS: Alanine Aminotransferase 19 U/L (0-41); Albumin Level 3.3 g/dL (3.5-5.2); Alkaline Phosphatase 87 U/L (40-130); Anion Gap 17.7 (5-19); Aspartate Amino Transferase 21 U/L (0-40); Blood Urea Nitrogen 26 mg/dL (8-23); Calcium 8.5 mg/dL (8.5-10.5); Carbon Dioxide 18 mmol/L (22-29); Chloride 104 mmol/L (98-107); Creatinine Clr Calc Pharmacy 93.5403; Globulin 3.1 g/dL (1.3-4.6); Glomerular Filtration Rate 85.2 mL/min (90-130); Glucose 184 mg/dL (65-115); Magnesium 1.7 mg/dL (1.7-2.3); Osmolality Calculated 292 mOsm/kg (285-295); Phosphorus 1.8 mg/dL (2.5-4.5); Potassium 3.7 mmol/L (3.5-5.1); Sodium 136 mmol/L (136-145); Total Bilirubin 0.4 mg/dL (0.15-1.2); Total Protein 6.4 g/dL (6.6-8.7)
[2024-09-07 04:24] LABS: Procalcitonin 0.26 ng/mL (0-0.5)
[2024-09-07 04:28] LABS: Chol HDL Ratio 4.65 mg/dL (1.0-5.00); Cholesterol 93 mg/dL (0-200); HDL Cholesterol 20 mg/dL (60-100); LDL Cholesterol Calculated 41 mg/dL (50-129); LDL HDL Ratio 2.05 RATIO (0.00-3.22); Triglycerides 159 mg/dL (0-150)
[2024-09-07 04:49] LABS: Folate Level 15.2 ng/mL (4.5-32.2)
[2024-09-07 06:37] LABS: Iron 17 ug/dL (59-158); Percent Saturation 7.2 % (20-50); Thyroid Stimulating Hormone 3.17 uIU/mL (0.27-4.20); Total Iron Binding Capacity 234 mcg/dl; Unsaturated Iron Binding 217 ug/dL (112-347); Vitamin B12 609 pg/mL (232-1245)
[2024-09-07 09:07] LABS: Glucose Point of Care 194 mg/dL (70-110)
[2024-09-07] MEDS: ATORVASTATIN 10 MG TABLET 20 MG PO (09:23)
[2024-09-07] MEDS: docusate sodium 100 mg Capsule PO ×2 (09:24→17:06)
[2024-09-07] MEDS: insulin lispro 100 unit/1 mL SUBCUT ×2 (09:24→17:06)
[2024-09-07] MEDS: amlodipine 10 mg Tablet PO (10:08)
--- NOTE | 2024-09-07 10:38 | PC.CHAP ---
Pastoral Care Encounter/Spiritual Assessment Type of Contact [] Declined emergency veterinary technician visit [] Patient/Family/Request visit [] Outpatient visit [] Follow-up visit [] Physician referral [] Code/Alert [] Routine visit [] Staff referral [] Actively dying [] Patient sleeping [] Family support [] [] Out of room [] Palliative care [] [X] Receiving care in room [] Pre-surgical visit [] Trauma [] Long length of stay [] ICU visit [] Other: Relational/Emotional Strength [] Patient feels connected with others/family/visitors/staff [] Distress [] Loneliness/isolation [] Abandonment Spirituality of Patient [] Person of Amanda [] Attends Spiritism of their Amanda [] Believes in Prayer [] Reads Bible or Pentecostalism materials [] There are Spiritual issues to be addressed Piece Dyer Interventions [] Prayer [] Active listening [] Non-anxious presence [] Spiritual/emotional support [] Crisis/trauma care [] Spiritual counseling [] Bereavement support [] Provided bereavement packet [] Provided Bible/devotional materials [] Provided toy/stuffed animal, coloring book to patient or family member [] Provided Communion [] Anointing/[place] [] Salvation [] Completed spiritual assessment [] Other: Impact on Illness or Injury [] Angry [] Fearful [] Anxious [] Often cries [] Exhaustion [] Unable to work [] Unable to attend advent [] Unable to walk/stand [] Unable to read [] Unable to drive [] Unable to eat/drink [] Unable to sleep [] Unable to be with family [] Patient intubated [] Other: Summary Time spent with patient
[2024-09-07] MEDS: cefTRIAXone 1,000 mg SDV 1000 MG IVP (11:22)
[2024-09-07] MEDS: hyDRALAzine 20 mg/mL INJ 1 mL 10 MG IVP (11:23)
--- NOTE | 2024-09-07 11:57 | P.PN_ITS ---
Subjective 2 Subjective: No acute events overnight. Patient seen laying comfortably in bed. Had dysuria overnight. Given bit of IDDM. Feeling a lot better now. Blood pressure is elevated. Afebrile. Vitals/I&O/Wt Last Vital Signs Temp 97.9 F 09/07/24 08:00 Pulse 90 09/07/24 08:00 Resp 26 H 09/07/24 08:00 BP 169/87 09/07/24 08:00 Pulse Ox 96 09/07/24 08:00 O2 Del Method Room Air 09/07/24 08:00 09/06/24 09/07/24 09/07/24 22:59 06:59 14:59 Intake Total 3542.5 / 3542.5 1000 / 4542.5 905 / 905 Output Total 300 / 300 460 / 460 Balance 3542.5 / 3542.5 700 / 4242.5 445 / 445 Weight last 48 hrs Weight 80.456 kg Weight 80.399 kg Weight 75.75 kg Physical Exam 2 Narrative: General: No acute distress, AO x3 HEENT: PERRLA, pupils bilaterally equal and reactive Chest: Normal vesicular breath sounds, no added sounds, equal good air entry bilaterally CVS: S1-S2 regular, no murmurs, no tachycardia, no gallops, no rubs, no renal angle tenderness Abdomen: Soft, nontender, no organomegaly, bowel sounds present Neuro: No focal deficits, no facial deformity, AO x3, power 5/5 in all limbs Skin: COMMON NORMALS: no rashes or lesions noted; negative for turgor normal GENERAL SKIN EXAM: no rashes or lesions noted and decreased turgor Data 09/07/24 03:45 09/07/24 03:45 Micro: Microbiology 09/06/24 11:47 Urine Culture - Preliminary Urine,Clean Catch Gram Negative Rods 09/06/24 12:46 Blood Culture - Preliminary Blood SPECIMEN COLLECTED 09/06/24 12:45 Blood Culture - Preliminary Blood SPECIMEN COLLECTED A&P Assessment and plan (1) Sepsis: Severe sepsis. SIRS: Tachycardic, Febrile, Leukocytosis Source: Pyelonephritis End organ damage: Hypotension, acute kidney injury Lactic acid within normal limits Patient did receive fluid bolus up with 30 mL/kg body weight. Patient well- hydrated. Blood pressure is better. Stop IV fluids. Monitor blood pressures. Keep mean artery pressure 65 mmHg. Follow blood culture, urine culture growing gram-negative rods, appreciate trend procalcitonin. (2) Acute pyelonephritis due to bacteria: Follow-up urine culture. Continue with IV ceftriaxone 1 g daily. De-escalate as per culture sensitivities. CT abdomen pelvis negative for obstructive nephropathy. (3) Type 2 diabetes mellitus: A1c 7.8. Continue with home dose Lantus. Insulin sliding scale low-dose protocol. (4) Hypertension: Goal blood pressure less than 140/90 mmHg with mean over 65. Blood pressure is elevated today. Given elevated blood pressures start on amlodipine 10 mg oral daily. Hold off on losartan given UDAY. IV hydralazine 10 mg every 4 hours as needed for a systolic of more than 160 mmHg. (5) Acute kidney injury: Resolved. Most likely in setting of severe sepsis. Cannot rule out CKD in setting of diabetic nephropathy. No baseline labs. CT negative for obstructive nephropathy. Medical reconciliation done for nephrotoxic drugs. Hold off on home dose of losartan and metformin. Daily BMP checks. Monitor electrolytes. Plan Full code Carb consistent diet Famotidine for PUD prophylaxis. Lovenox for DVT prophylaxis PDMP PDMP Reviewed: Not Reviewed Attestations 2 Medical Necessity Statement*: Requires further hospitalization for management of sepsis in setting of pyelonephritis, hypotension resolving with IV fluids Diagnoses Sepsis A41.9; R65.20; N17.9 Acute renal failure type: unspecified Sepsis acute organ dysfunction status: with acute organ dysfunction Sepsis type: sepsis due to unspecified organism Severe sepsis acute organ dysfunction type: acute renal failure Severe sepsis shock status: without septic shock Acute pyelonephritis due to bacteria N10; B96.89 Type 2 diabetes mellitus E11.9 Hypertension I10 Acute kidney injury N17.9
[2024-09-07 12:45] LABS: Glucose Point of Care 161 mg/dL (70-110)
[2024-09-07 16:46] LABS: Glucose Point of Care 225 mg/dL (70-110)
[2024-09-07] MEDS: famotidine 20 mg Tablet PO (17:06)
--- NOTE | 2024-09-07 17:38 | PC.NURSE ---
Report called to Izzy on med-surg unit.
[2024-09-07 20:57] LABS: Glucose Point of Care 129 mg/dL (70-110)
[2024-09-07] MEDS: enoxaparin 40 mg/0.4 mL Syringe SUBCUT (21:46)
--- NOTE | 2024-09-07 21:48 | PC.NURSE ---
Patient refuses telemetry and SCDs this evening as well as midnight vital signs. He states that he did not get but 1 hour of sleep last night and would like for tonight's focus to be rest. This nurse explained the risks vs benefits and he requested that the tele box and SCDs be put on tomorrow morning and that we could do his 0400 vital signs. The patient was pleasant and respectful with his request.
[2024-09-08 04:00] VITALS: BP 147/77; PULSE 92; RESP 20; TEMP 37.3; O2SAT 95
[2024-09-08 04:19] LABS: Basophils # 0.1 10^3/uL (0.0-0.1); Basophils % 0.3 %; Eosinophils % 0.2 %; Lymphocytes # 1.4 10^3/uL (0.8-4.8); Mean Corpuscular HGB Conc 33.8 g/dL (30-55); Mean Corpuscular Hemoglobin 30.6 pg (27-33); Mean Corpuscular Volume 90.7 fl (82-101); Mean Platelet Volume 10.4 fL (7.4-10.4); Monocytes # 1.6 10^3/uL (0.2-0.9); Neutrophils % 79.9 %; Nucleated Red Blood Cells % 0 %; Platelet Count 238 10^3/cmm (157-399); Red Blood Count 4.08 10^6/uL (3.85-5.65); Red Cell Distribution Width 12.7 % (12.1-15.1); White Blood Count 16.02 10^3/uL (3.29-11.43)
[2024-09-08 04:44] LABS: Alanine Aminotransferase 35 U/L (0-41); Albumin Level 3.1 g/dL (3.5-5.2); Alkaline Phosphatase 92 U/L (40-130); Anion Gap 16.6 (5-19); Aspartate Amino Transferase 33 U/L (0-40); Blood Urea Nitrogen 19 mg/dL (8-23); Carbon Dioxide 22 mmol/L (22-29); Chloride 105 mmol/L (98-107); Creatinine Clr Calc Pharmacy 120.3009; Globulin 3.2 g/dL (1.3-4.6); Glomerular Filtration Rate 113.9 mL/min (90-130); Glucose 160 mg/dL (65-115); Magnesium 1.7 mg/dL (1.7-2.3); Osmolality Calculated 296 mOsm/kg (285-295); Phosphorus 2.1 mg/dL (2.5-4.5); Potassium 3.6 mmol/L (3.5-5.1); Sodium 140 mmol/L (136-145); Total Bilirubin 0.5 mg/dL (0.15-1.2); Total Protein 6.3 g/dL (6.6-8.7)
[2024-09-08 06:54] LABS: Glucose Point of Care 174 mg/dL (70-110)
[2024-09-08 07:23] VITALS: BP 152/81; PULSE 79; RESP 19; TEMP 36.7; O2SAT 97
[2024-09-08 08:00] VITALS: BP 125/75; BP 141/76; BP 149/81; PULSE 101; PULSE 87; PULSE 92
[2024-09-08] MEDS: ATORVASTATIN 10 MG TABLET 20 MG PO (08:54)
[2024-09-08] MEDS: docusate sodium 100 mg Capsule PO ×2 (08:54→18:12)
[2024-09-08] MEDS: famotidine 20 mg Tablet PO ×2 (08:54→18:12)
[2024-09-08] MEDS: amlodipine 10 mg Tablet PO (08:54)
[2024-09-08] MEDS: insulin lispro 100 unit/1 mL SUBCUT ×4 (08:54→21:25)
[2024-09-08 11:11] LABS: Glucose Point of Care 219 mg/dL (70-110)
[2024-09-08 11:39] VITALS: BP 123/71; PULSE 82; RESP 19; TEMP 36.7; O2SAT 97
--- NOTE | 2024-09-08 11:57 | P.PN_ITS ---
Subjective 2 Subjective: No acute events overnight. Patient has remained hemodynamically stable and afebrile. Remains on room air. Blood pressure better controlled. States he has less discomfort in urination now. Vitals/I&O/Wt Last Vital Signs Temp 98.0 F 09/08/24 11:39 Pulse 82 09/08/24 11:39 Resp 19 H 09/08/24 11:39 BP 123/71 09/08/24 11:39 Pulse Ox 97 09/08/24 11:39 O2 Del Method Room Air 09/08/24 11:39 09/07/24 09/08/24 09/08/24 22:59 06:59 14:59 Intake Total 455 / 1600 240 / 240 Output Total 570 / 1030 Balance -115 / 570 240 / 240 Weight last 48 hrs Weight 77.7 kg Weight 80.456 kg Weight 80.399 kg Physical Exam 2 Narrative: General: No acute distress, AO x3 HEENT: PERRLA, pupils bilaterally equal and reactive Chest: Normal vesicular breath sounds, no added sounds, equal good air entry bilaterally CVS: S1-S2 regular, no murmurs, no tachycardia, no gallops, no rubs, no renal angle tenderness Abdomen: Soft, nontender, no organomegaly, bowel sounds present Neuro: No focal deficits, no facial deformity, AO x3, power 5/5 in all limbs Skin: COMMON NORMALS: no rashes or lesions noted; negative for turgor normal GENERAL SKIN EXAM: no rashes or lesions noted and decreased turgor Data 09/08/24 03:22 09/08/24 03:22 Micro: Microbiology 09/06/24 12:46 Blood Culture - Preliminary Blood NEGATIVE TO DATE 09/06/24 12:45 Blood Culture - Preliminary Blood NEGATIVE TO DATE 09/06/24 11:47 Urine Culture - Preliminary Urine,Clean Catch Gram Negative Rods A&P Assessment and plan (1) Sepsis: Severe sepsis. SIRS: Tachycardic, Febrile, Leukocytosis Source: Pyelonephritis End organ damage: Hypotension, acute kidney injury Lactic acid within normal limits Patient did receive fluid bolus up with 30 mL/kg body weight. Patient well- hydrated. Blood pressure is better. Stop IV fluids. Monitor blood pressures. Keep mean artery pressure 65 mmHg. Follow blood culture, urine culture growing gram-negative rods, appreciate trend procalcitonin. (2) Acute pyelonephritis due to bacteria: Follow-up urine culture. Continue with IV ceftriaxone 1 g daily. De-escalate as per culture sensitivities. CT abdomen pelvis negative for obstructive nephropathy. (3) Type 2 diabetes mellitus: A1c 7.8. Continue with home dose Lantus. Insulin sliding scale low-dose protocol. (4) Hypertension: Goal blood pressure less than 140/90 mmHg with mean over 65. Blood pressure is elevated today. Given elevated blood pressures start on amlodipine 10 mg oral daily. Hold off on losartan given UDAY. IV hydralazine 10 mg every 4 hours as needed for a systolic of more than 160 mmHg. (5) Acute kidney injury: Resolved. Most likely in setting of severe sepsis. Cannot rule out CKD in setting of diabetic nephropathy. No baseline labs. CT negative for obstructive nephropathy. Medical reconciliation done for nephrotoxic drugs. Hold off on home dose of losartan and metformin. Daily BMP checks. Monitor electrolytes. Plan Full code Carb consistent diet Famotidine for PUD prophylaxis. Lovenox for DVT prophylaxis Plan for the day: Follow-up for urine culture. Blood cultures so far negative. Continue with current IV ceftriaxone. De-escalate as per culture sensitivities. Continues to have leukocytosis. Afebrile. Goal blood pressure less than 140/90 mmHg. Currently stable with amlodipine 10 mg oral daily. Renal functions improving and UDAY resolved. Continue with oral hydration. PDMP PDMP Reviewed: Not Reviewed Attestations 2 Medical Necessity Statement*: Requires further hospitalization for management of UTI with concerns for pyelonephritis, acute kidney injury while culture sensitivities are awaited Diagnoses Sepsis A41.9; R65.20; N17.9 Acute renal failure type: unspecified Sepsis acute organ dysfunction status: with acute organ dysfunction Sepsis type: sepsis due to unspecified organism Severe sepsis acute organ dysfunction type: acute renal failure Severe sepsis shock status: without septic shock Acute pyelonephritis due to bacteria N10; B96.89 Type 2 diabetes mellitus E11.9 Hypertension I10 Acute kidney injury N17.9
[2024-09-08] MEDS: cefTRIAXone 1,000 mg SDV 1000 MG IVP (12:50)
[2024-09-08 16:38] LABS: Glucose Point of Care 169 mg/dL (70-110)
[2024-09-08 17:00] VITALS: BP 161/70; PULSE 73; RESP 19; TEMP 36.4; O2SAT 97
[2024-09-08 20:06] VITALS: BP 174/68; PULSE 100; RESP 19; TEMP 36.6; O2SAT 95
[2024-09-08 20:56] LABS: Glucose Point of Care 274 mg/dL (70-110)
[2024-09-08] MEDS: insulin glargine 100 units/1 mL 30 UNIT SUBCUT (21:25)
[2024-09-08] MEDS: enoxaparin 40 mg/0.4 mL Syringe SUBCUT (21:25)
[2024-09-09 00:10] VITALS: BP 156/72; PULSE 74; RESP 18; TEMP 37.2; O2SAT 96
[2024-09-09 04:05] VITALS: BP 152/76; PULSE 80; RESP 18; TEMP 37; O2SAT 95
[2024-09-09 04:10] LABS: Basophils # 0.1 10^3/uL (0.0-0.1); Basophils % 0.6 %; Eosinophils # 0.2 10^3/uL (0.0-0.8); Eosinophils % 1.9 %; Hematocrit 39.3 % (37-53); Lymphocytes % 17.8 %; Mean Corpuscular HGB Conc 33.6 g/dL (30-55); Mean Corpuscular Hemoglobin 30.4 pg (27-33); Mean Corpuscular Volume 90.6 fl (82-101); Mean Platelet Volume 9.7 fL (7.4-10.4); Monocytes # 1.3 10^3/uL (0.2-0.9); Monocytes % 11.8 %; Neutrophils # 7.51 10^3/uL (1.8-7.7); Neutrophils % 66.9 %; Nucleated Red Blood Cells % 0 %; Platelet Count 273 10^3/cmm (157-399); Red Blood Count 4.34 10^6/uL (3.85-5.65); Red Cell Distribution Width 12.6 % (12.1-15.1); White Blood Count 11.22 10^3/uL (3.29-11.43)
[2024-09-09 04:41] LABS: Alanine Aminotransferase 49 U/L (0-41); Albumin Level 3.2 g/dL (3.5-5.2); Alkaline Phosphatase 128 U/L (40-130); Anion Gap 13.8 (5-19); Aspartate Amino Transferase 37 U/L (0-40); Blood Urea Nitrogen 18 mg/dL (8-23); Calcium 9.2 mg/dL (8.5-10.5); Carbon Dioxide 28 mmol/L (22-29); Chloride 105 mmol/L (98-107); Creatinine Clr Calc Pharmacy 103.7896; Globulin 3.6 g/dL (1.3-4.6); Glomerular Filtration Rate 97.6 mL/min (90-130); Glucose 113 mg/dL (65-115); Magnesium 1.9 mg/dL (1.7-2.3); Osmolality Calculated 299 mOsm/kg (285-295); Phosphorus 2.9 mg/dL (2.5-4.5); Potassium 3.8 mmol/L (3.5-5.1); Sodium 143 mmol/L (136-145); Total Bilirubin 0.5 mg/dL (0.15-1.2); Total Protein 6.8 g/dL (6.6-8.7)
[2024-09-09 07:04] LABS: Glucose Point of Care 118 mg/dL (70-110)
--- NOTE | 2024-09-09 07:35 | P.DS_ITS ---
Discharge Providers Date of Admission: 09/06/24 14:28 Date of Discharge: September 09, 2024 Attending Provider at Admission: Trace Perez MD Attending Provider at Discharge: Trace Perez MD Primary Care Provider: Ming Max DO Diagnoses at Discharge Discharge Diagnosis (1) Sepsis: Status: Acute Qualifiers: Acute renal failure type: unspecified Sepsis acute organ dysfunction status: with acute organ dysfunction Sepsis type: sepsis due to unspecified organism Severe sepsis acute organ dysfunction type: acute renal failure Severe sepsis shock status: without septic shock Qualified Code(s): A41.9 - Sepsis, unspecified organism; R65.20 - Severe sepsis without septic shock; N17.9 - Acute kidney failure, unspecified (2) Acute pyelonephritis due to bacteria: Status: Acute (3) Type 2 diabetes mellitus: Status: Acute (4) Hypertension: Status: Acute (5) Acute kidney injury: Status: Acute Reason for Visit Reason for Visit: pain with urination Hospital Course Hospital Course Osei Mohr is a 64 year old male with past medical history of type 2 diabetes mellitus, hypertension presents to the ER difficulty and painful urination along with decreased urination for last 2 days. Patient denies any nausea vomiting, headache. Occasional back pain. Denies any trauma. Had a UTI once around 2 to 3 years ago. In the ER found to have systolic blood pressure 87 after which he was given septic bolus. Currently blood pressures are 120 systolics. Patient was admitted to the hospital further evaluation and management of severe sepsis in setting of pyelonephritis. CT on pelvis was negative for obstructive nephropathy. He was started on broad-spectrum antibiotics. His blood cultures remain negative and urine culture was positive for pansensitive E. coli. His blood pressures improved after IV fluid boluses. His UDAY resolved. He is been discharged in hemodynamically stable condition on oral Levaquin for 7 more days. His dose of losartan has been withheld instead has been changed to oral amlodipine 10 mg daily. He can restart his losartan and stop amlodipine in 2 weeks. He is to check his blood pressure daily at home maintain a blood pressure diary. He is to follow-up with his primary care provider within next 1 week with a blood pressure diary. Physical Exam Narrative: General: No acute distress, AO x3 HEENT: PERRLA, pupils bilaterally equal and reactive Chest: Normal vesicular breath sounds, no added sounds, equal good air entry bilaterally CVS: S1-S2 regular, no murmurs, no tachycardia, no gallops, no rubs, no renal angle tenderness Abdomen: Soft, nontender, no organomegaly, bowel sounds present Neuro: No focal deficits, no facial deformity, AO x3, power 5/5 in all limbs Skin: COMMON NORMALS: no rashes or lesions noted; negative for turgor normal GENERAL SKIN EXAM: no rashes or lesions noted and decreased turgor Discharge Data Studies Completed and Pending Completed Studies During Hospitalization Category Date Time Status CT abdomen pelvis wo con [id number] Stat Cat Scan 09/06/24 13:10 Completed Pending at discharge Category Date Time Status Blood Culture Stat Lab 09/06/24 12:46 Results Radiology Impressions Abdomen/Pelvis CT 09/06/24 13:10 IMPRESSION: 1. New, mild bilateral perinephric stranding. No renal or ureteral obstruction. Slightly greater inflammation surrounding the LEFT kidney and ureter. Correlate for possible urinary tract infection. 2. Descending colon diverticulosis. No evidence for acute diverticulitis. 3. Negative appendix. 4. No obstruction of the GI tract. Microbiology 09/06/24 11:47 Urine,Clean Catch Urine Culture - Final Escherichia coli 09/06/24 12:46 Blood Blood Culture - Preliminary NEGATIVE TO DATE 09/06/24 12:45 Blood Blood Culture - Preliminary NEGATIVE TO DATE Laboratory Results WBC 11.22 10^3/uL (3.29-11.43) 09/09/24 03:40 RBC 4.34 10^6/uL (3.85-5.65) 09/09/24 03:40 Hgb 13.20 g/dL (11.27-16.99) 09/09/24 03:40 Hct 39.3 % (37-53) 09/09/24 03:40 MCV 90.6 fl (82-101) 09/09/24 03:40 MCH 30.4 pg (27-33) 09/09/24 03:40 MCHC 33.6 g/dL (30-55) 09/09/24 03:40 RDW 12.6 % (12.1-15.1) 09/09/24 03:40 Plt Count 273 10^3/cmm (157-399) 09/09/24 03:40 MPV 9.7 fL (7.4-10.4) 09/09/24 03:40 Neut % (Auto) 66.9 % 09/09/24 03:40 Lymph % (Auto) 17.8 % 09/09/24 03:40 [place] % (Auto) 11.8 % 09/09/24 03:40 Eos % (Auto) 1.9 % 09/09/24 03:40 Baso % (Auto) 0.6 % 09/09/24 03:40 Neut # (Auto) 7.51 10^3/uL (1.8-7.7) 09/09/24 03:40 Lymph # (Auto) 2.0 10^3/uL (0.8-4.8) 09/09/24 03:40 [place] # (Auto) 1.3 10^3/uL (0.2-0.9) H 09/09/24 03:40 Eos # (Auto) 0.2 10^3/uL (0.0-0.8) 09/09/24 03:40 Baso # (Auto) 0.1 10^3/uL (0.0-0.1) 09/09/24 03:40 Nucleated RBC % (auto) 0 % 09/09/24 03:40 Nucleated RBCs # 0.0 /100WBC 09/09/24 03:40 Sodium 143 mmol/L (136-145) 09/09/24 03:40 Potassium 3.8 mmol/L (3.5-5.1) 09/09/24 03:40 Chloride 105 mmol/L (98-107) 09/09/24 03:40 Carbon Dioxide 28 mmol/L (22-29) 09/09/24 03:40 Anion Gap 13.8 (5-19) 09/09/24 03:40 BUN 18 mg/dL (8-23) 09/09/24 03:40 Creatinine 0.8 mg/dL (0.7-1.2) 09/09/24 03:40 GFR Calculation 97.6 mL/min (90-130) 09/09/24 03:40 Glucose 113 mg/dL (65-115) 09/09/24 03:40 POC Glucose 118 mg/dL (70-110) H 09/09/24 06:37 Estimat Average Glucose 177 09/06/24 11:23 Hemoglobin A1c 7.8 % (4.0-6.0) H 09/06/24 11:23 Calculated Osmolality 299 mOsm/kg (285-295) H 09/09/24 03:40 Lactic Acid 2.1 mmol/L (0.5-2.2) 09/06/24 15:12 Lactic Acid (Sepsis) 1.2 mmol/L (0.5-2.2) 09/06/24 17:53 Calcium 9.2 mg/dL (8.5-10.5) 09/09/24 03:40 Phosphorus 2.9 mg/dL (2.5-4.5) 09/09/24 03:40 Magnesium 1.9 mg/dL (1.7-2.3) 09/09/24 03:40 Iron 17 ug/dL (59-158) L 09/06/24 11:23 TIBC 234 mcg/dl 09/06/24 11:23 % Saturation 7.2 % (20-50) L 09/06/24 11:23 Unsat Iron Binding 217 ug/dL (112-347) 09/06/24 11:23 Total Bilirubin 0.5 mg/dL (0.15-1.2) 09/09/24 03:40 AST 37 U/L (0-40) 09/09/24 03:40 ALT 49 U/L (0-41) H 09/09/24 03:40 Alkaline Phosphatase 128 U/L (40-130) 09/09/24 03:40 Total Protein 6.8 g/dL (6.6-8.7) 09/09/24 03:40 Albumin 3.2 g/dL (3.5-5.2) L 09/09/24 03:40 Globulin 3.6 g/dL (1.3-4.6) 09/09/24 03:40 Triglycerides 159 mg/dL (0-150) H 09/07/24 03:45 Cholesterol 93 mg/dL (0-200) 09/07/24 03:45 LDL Cholesterol, Calc 41 mg/dL (50-129) L 09/07/24 03:45 HDL Cholesterol 20 mg/dL (60-100) L 09/07/24 03:45 LDL/HDL Ratio 2.05 RATIO (0.00-3.22) 09/07/24 03:45 Cholesterol/HDL Ratio 4.65 mg/dL (1.0-5.00) 09/07/24 03:45 Vitamin B12 609 pg/mL (232-1245) 09/06/24 11:23 Folate 15.2 ng/mL (4.5-32.2) 09/07/24 03:45 Procalcitonin 0.26 ng/mL (0-0.5) 09/07/24 03:45 TSH 3.17 uIU/mL (0.27-4.20) 09/06/24 11:23 Urine Color Dark yellow (Yellow) A 09/06/24 11:47 Urine Appearance Cloudy (CLEAR) A 09/06/24 11:47 Urine pH 5.5 (5-7) 09/06/24 11:47 Ur Specific [place] 1.024 (1.005-1.030) 09/06/24 11:47 Urine Protein 2+ (Negative) A 09/06/24 11:47 Urine Glucose (UA) 3+ (Normal) H 09/06/24 11:47 Urine Ketones Trace (Negative) 09/06/24 11:47 Urine Blood 3+ (Negative) A 09/06/24 11:47 Urine Nitrate Positive (Negative) A 09/06/24 11:47 Urine Bilirubin Negative (Negative) 09/06/24 11:47 Urine Urobilinogen 1.0 mg/dL (Negative) 09/06/24 11:47 Ur Leukocyte Esterase 2+ (Negative) A 09/06/24 11:47 Urine RBC 0-2 /hpf (0-2) 09/06/24 11:47 Urine WBC >100 /hpf (0-5) H 09/06/24 11:47 Ur Squamous Epith Cells 0-5 /hpf (0-5) 09/06/24 11:47 Amorphous Sediment Not Reportable 09/06/24 11:47 Urine Bacteria 4+ /hpf (NONE) H 09/06/24 11:47 Hyaline Casts 7.85 /lpf 09/06/24 11:47 Vitals Last Vital Signs Temp 98.6 F 09/09/24 04:05 Pulse 80 09/09/24 04:05 Resp 18 09/09/24 04:05 BP 152/76 09/09/24 04:05 Pulse Ox 95 09/09/24 04:05 O2 Del Method Room Air 05/18/25 17:00 Discharge Plan Discharge Patient Disposition: Home Condition: Stable Prescriptions: New amlodipine 10 mg Tablet 10 mg PO DAILY Qty: 14 0RF levofloxacin 500 mg tablet 500 mg PO Q24H 7 Days Qty: 7 0RF Continued atorvastatin 20 mg tablet 20 mg PO DAILY@0630 insulin glargine [Lantus Solostar U-100 Insulin] 100 unit/mL (3 mL) insulin pen 30 unit SUBCUT BEDTIME@2000 metformin 500 mg tablet extended release 24 hr 500 mg PO DAILY Held losartan 25 mg tablet 25 mg PO DAILY@0630 Hold Instructions: Resume on 09/22/24. Discharge Orders: Discharge Order (Routine); Ordered 09/09/24 Ordered By: Trace Perez Referrals: Grzegorz Biswas MD [Physician, Family Practice] - 09/10/24 2:45 pm Discharge Diet: Diabetic Discharge Activity: Resume usual activity and Increase activity as tolerated Patient Instructions: Amlodipine (By mouth), Levofloxacin (By mouth) (Levaquin, Levaquin Leva-eusebia), Urinary Tract Infection in Men (GEN), Opioid Safety Activity Restrictions/Additional Instructions: Take Levaquin which is the antibiotic for next 1 week. For now hold off on taking losartan. Repeat BMP in 2 weeks. Please check your blood pressure daily at home maintain a blood pressure diary. Goal blood pressure less than 140/90 mmHg. Continuing amlodipine 10 mg daily for 2 weeks. You can switch to losartan after 2 weeks. Follow-up with a primary care provider over the next 1 week. Discharge Attestations Time Spent in Discharge Care*: greater than 30 min Specific Discharge Activities: educating patient, discussing with pcp/other providers, discussing with nurse case manager/social workers/dc planners, documenting/other paperwork and evaluating patient/reviewing data Status at Discharge: Cognitive status at discharge: cognitively intact , Behavioral status at discharge: cooperative , Functional status at discharge: independent ambulation , Overall status at discharge: patient is back to baseline Quality Metrics Clinical Quality Measures [ No reported AMI, CVA or VTE this stay] Coding Level of Care Code 30142 Total time (in minutes) for Discharge: 65 Diagnoses Sepsis A41.9; R65.20; N17.9 Acute renal failure type: unspecified Sepsis acute organ dysfunction status: with acute organ dysfunction Sepsis type: sepsis due to unspecified organism Severe sepsis acute organ dysfunction type: acute renal failure Severe sepsis shock status: without septic shock Acute pyelonephritis due to bacteria N10; B96.89 Type 2 diabetes mellitus E11.9 Hypertension I10 Acute kidney injury N17.9
[2024-09-09] MEDS: ATORVASTATIN 10 MG TABLET 20 MG PO (08:34)
[2024-09-09] MEDS: famotidine 20 mg Tablet PO (08:34)
[2024-09-09] MEDS: amlodipine 10 mg Tablet PO (08:34)
[2024-09-09] MEDS: docusate sodium 100 mg Capsule PO (08:34)
[2024-09-09 08:39] VITALS: BP 171/91; PULSE 69; RESP 18; TEMP 36.6; O2SAT 98
[2024-09-09 09:14] VITALS: BP 159/90
[2024-09-09 10:08] VITALS: BP 159/90; PULSE 69; RESP 16; TEMP 36.6; O2SAT 98
--- NOTE | 2024-09-09 10:09 | PC.NURSE ---
Pt was educated on discharge instructions and all questions were answered. IV was removed. Pt was taken down to the discharge waiting room to wait for family to roller picker. Pt was alert and oriented and able to ambulate.
== END 2024-09-09 09:30 | disposition home or self-care (01) | DRG 872 ==
LOC: ER 14:28 → ER IP 16:36 → CSU 18:29 → MEDSURG 09-07 20:35
PROVIDERS: Family Medicine; Admitting Provider Student in an Organized Health Care Education/Training Program; Emergency Provider General Practice; PCP Internal Medicine; Visit Provider Student in an Organized Health Care Education/Training Program
DX: A41.9 Sepsis, unspecified organism (principal); N10 Acute pyelonephritis; R65.20 Severe sepsis without septic shock; E11.9 Type 2 diabetes mellitus without complications; I10 Essential (primary) hypertension; B96.20 Unspecified Escherichia coli [E. coli] as the cause of diseases classified elsewhere; E78.5 Hyperlipidemia, unspecified; Z79.4 Long term (current) use of insulin; Z87.440 Personal history of urinary (tract) infections
CPT/HCPCS: 36415; 36416; 74176; 80053; 80061; 81001; 82607; 82746; 82962; 83036; 83540; 83550; 83605; 83735; 84100; 84145; 84443; 85025; 87040; 87077; 87086; 87186; 93005; 94664; 96365; 96372; 99285; A9270; J0360; J0696; J1650; J1815; J1956; J7030; J9999